=== PATIENT | male | born 1975 | race Caucasian/White ===

== ENCOUNTER 2017-03-06 20:44 | Emergency (ER) | payer OTHER ==
--- NOTE | 2017-03-07 00:02 | DIAGNOSTIC IMAGING REPORT ---
PROCEDURE: CT ABD/PELVIS WITH CONTRAST INDICATION: ABDOMINAL PAIN TECHNIQUE: 145 ml of Isovue 300 were injected intravenously and axial images were obtained of the entire abdomen and pelvis with sagittal and coronal reformations. COMPARISON: None. FINDINGS: ABDOMEN: Moderate splenomegaly with splenic and esophageal varices. Mildly heterogeneous appearance of the liver. Gallbladder, pancreas, kidneys, and aorta are normal. There is a 3.6 cm low density right adrenal nodule (25 HU) with lipomatous changes. Bowel pattern is normal. Appendix is not clearly identified, but no evidence of inflammatory process. PELVIS: Pelvic structures are normal. No evidence of free fluid. IMPRESSION: 1. Moderate splenomegaly with splenic and esophageal varices (portal hypertension). 2. Heterogeneous appearance of the liver high suggests intrinsic liver disease. 3. There is a 3.6 cm right adrenal nodule most compatible with a benign adenoma (functioning versus nonfunctioning). Follow-up CT in 6 months is recommended to confirm stability. 4. Otherwise negative CT abdomen and pelvis. 5. Findings discussed with Dr. Bud Torres. All CT scans at this facility use dose modulation, iterative reconstruction, and/or weight-based dosing when appropriate to reduce radiation dose to as low as reasonably achievable.
--- NOTE | 2017-03-07 00:10 | ED ORDER SUMMARY ---
..... Patient: JULIANNA HUFFMAN OrderSheet [facility] VisitID: [id number] [place] [address] 41y, M Registration Date/Time: 03/06/2017 ORDER SHEET Weight: 113.3 kg (stated) Allergies: Cephalexin, Toradol, Tylenol GENERAL ORDERS: CBC w Diff Urgent (21:03/06/2017 Bryson Smith) (Ack 21:19 CHagerty ER Hogshead Stripper) (21:38 DDean R.N.) CMP Urgent (21:03/06/2017 Bryson Smith) (Ack 21:19 CHagerty ER Hogshead Stripper) (21:38 DDean R.N.) UA-Culture if indicated Urgent (21:03/06/2017 Bryson Smith) (Ack 21:19 CHagerty ER Hogshead Stripper) (22:16 DDean R.N.) PT with INR Urgent (21:03/06/2017 Bryson Smith) (Ack 21:19 CHagerty ER Hogshead Stripper) (21:38 DDean R.N.) Lipase Urgent (21:03/06/2017 Bryson Smith) (Ack 21:19 CHagerty ER Hogshead Stripper) (21:38 DDean R.N.) Troponin-I Urgent (21:03/06/2017 Bryson Smith) (Ack 21:19 CHagerty ER Hogshead Stripper) (21:38 DDean R.N.) Urine Drug Screen Urgent (21:03/06/2017 Bryson Smith) (Ack 21:19 CHagerty ER Hogshead Stripper) (22:16 DDean R.N.) Pulse oximeter (21:03/06/2017 Bryson Smith) (21:17 DDean R.N.) D-Dimer Urgent (21:03/06/2017 Bryson Smith) (Ack 21:19 CHagerty ER Hogshead Stripper) (21:38 DDean R.N.) EKG - ER Stat (21:03/06/2017 Bryson Smith) (21:56 CHagerty ER Hogshead Stripper) Chief Engineer Waterworks (Continuous) (CP) (21:25 03/06/2017 Bryson Smith) (21:38 DDean R.N.) Chest 1V Urgent (22:44 03/06/2017 Bryson Smith) [facility] (22:54 RFay) Troponin-I (redraw now) Urgent (23:02 03/06/2017 Bryson Smith) (Ack 23:13 Miguelangel ER Hogshead Stripper) (23:26 CBradjannet R.N.) CT Abd/Pel w Cont (No) (gfr > 60) Urgent (23:02 03/06/2017 Bryson Smith) (Ack 23:13 Mangoerty ER Hogshead Stripper) (23:26 CBradburn R.N.) MEDICATION ORDERS: IV FLUIDS: IV NS : initial bolus 1000 mL (1000 mL/hr), then none - for X1 (NOW) (21:06 03/06/2017 Bryson Smith) (Ack 21:30 JQuivey R.N.) (21:39 JQuivey R.N.) Morphine IV 8 mg (HIGH ALERT MEDICATION, NOW) (21:07 03/06/2017 Bryson Smith) (Ack 21:30 JQuivey R.N.) (21:40 JQuivey R.N.) Zofran IV 4 mg (NOW) (21:07 03/06/2017 Bryson Smith) (Ack 21:30 JQuivey R.N.) (21:39 JQuivey R.N.) Dilaudid IV 1 mg (HIGH ALERT MEDICATION, NOW) (23:06 03/06/2017 Bryson Smith) (Ack 23:16 JSanders R.N.) (23:21 JSanders R.N.) ORDER SHEET NOTES: [Electronically signed by Lilly Cummins R.N. (00:26 03/07/2017)] [Electronically signed by Bud Torres Dr. (06:01 03/07/2017)] [Electronically locked/signed by Lilly Cummins R.N. (00:26 03/07/2017)]
--- NOTE | 2017-03-07 00:10 | ED NURSING NOTES ---
Clinical Report - Nurses Located Within [facility] [address] [place] [address] 03/06/2017 20:44 Patient: JULIANNA HUFFMAN TRIAGE Triage time 2044. Acuity: LEVEL 3. Chief Complaint: ABDOMINAL PAIN, NAUSEA, VOMITING and DIARRHEA. 20:45. --20:55 Sharmaine Rodriguez R.N. 20:48 03/06/17. BP: 173/100. HR: 79. RR: 19. O2 saturation: 100%. Temp: 98.8 F. Pain level now: 07/03. --20:55 Sharmaine Rodriguez R.N. Weight: 113.3 kg stated. Height/Length: 74 inches Per Patient. BMI: 32.1. --20:48 Sharmaine Rodriguez R.N. Medications ALPRAZolam Oral 1 mg, 2x a day as needed, anxity. Gabapentin Oral (Tablet 600 mg), 2x a day as needed. HCTZ 25 mg, daily. Lisinopril Oral 40 mg, daily. Propranolol (has been out for awhile ). PROzac Oral (Capsule 20 mg) 2 capsules, daily. --20:51 Sharmaine Rodriguez R.N. Allergies Cephalexin.(hives) Toradol.(hives, rash) Tylenol. (hep c) --20:51 Sharmaine Rodriguez R.N. History Arrived by EMS. Historian: police. Accompanied by police. No primary care physician. Onset. (1500). ( Pt also c/o mid-epigastric pain, and states he thinks he is going thru heroin withdrawl. last used , and uses daily). He has had nausea. He has had vomiting (x4). He has had diarrhea (x6). He has had abdominal pain (RUQ). SOCIAL HX: Former smoker (quit 6 months ago, was a 1ppd smoker for 5 years). Alcohol use. History of drug use: heroin, methamphetamines. (1/2 grams daily,). --20:55 Sharmaine Rodriguez R.N. PROBLEMS: Healing Abscess. Cellulitis. Hepatitis C. Abscess. Hypertension. --20:49 Sharmaine Rodriguez R.N. ADDITIONAL SURGERIES: Appendectomy. Left shoulder surgery. Shoulder Surgery. --20:49 Sharmaine Rodriguez R.N. Interventions ID band on patient. To treatment room. --20:55 Sharmaine Rodriguez R.N. PHYSICAL ASSESSMENT 20:45. To room via stretcher. Patient gowned. GENERAL / NEURO / PSYCH: Alert. Oriented X 4. Appears in pain. RESPIRATORY: Respirations not labored. CVS: Capillary refill less than 2 seconds. GI / : The patient has had nausea and diarrhea. Emesis noted. Abdominal tenderness. SKIN: Skin is warm and dry. --20:55 Sharmaine Rodriguez R.N. NURSING PROGRESS NOTES 20:45. Patient gowned. Head of bed elevated. Reassurance given. Patient identifiers checked. Call light placed in reach. Side rails up. Bed placed in lowest position. Patient ready for evaluation- chart flagged. --20:55 Sharmaine Rodriguez R.N. 20:58 03/06/17. BP: 159/92. HR: 76. RR: 20. O2 saturation: 100%. Temp: deferred. Pain level now: 07/03. --20:58 Sharmaine Rodriguez R.N. ( Unsuccessful IV start attempt in left AC and right AC). --21:20 Alfonso Pena R.N. 21:28 03/06/2017 Site #1 started via IV in the right wrist with an 20g angiocath, with aseptic technique and good blood return; one attempt. Blood drawn: rainbow set. Labeled in the presence of the patient and sent to the lab. Saline lock flushed with 10 mL saline. --21:39 Jerome Morgan R.N. 21:31 03/06/2017 Started bag #1 1000 mL IV Fluids IV NS (Saline); at 1000 mL/hr over 1 hour(s) via site #1 --21:39 Jerome Morgan R.N. 21:33 03/06/2017 Zofran (Ondansetron HCl) IVP 4 mg given over 2 minute(s) via site #1. Allergies verified and confirmed 5 rights. IV patency established. IV site checked: no pain, redness, or swelling. IV flushed thoroughly pre- and post-medication administration. --21:39 Jerome Morgan R.N. 21:35 03/06/2017 Morphine IVP 8 mg given over 2 minute(s) via site #1. Allergies verified, confirmed 5 rights and sedative warning given to the patient. IV patency established. IV site checked: no pain, redness, or swelling. IV flushed thoroughly pre- and post-medication administration. --21:40 Jerome Morgan R.N. EKG time: (2154). EKG was ordered, performed by a tech and shown to the ED physician. --21:58 Alberto Pisano, ER [employer] Truck Driver 22:00 03/06/17. BP: 161/86. HR: 66. RR: 24. O2 saturation: 100%. Temp: deferred. Pain level now: 05/02. --22:15 Sharmaine Rodriguez R.N. 22:10. Patient ID band checked for patient name and birthdate: patient confirmed. Clean catch urine collected with return of orange-colored clear urine; sample sent to lab for urinalysis, culture and drug screen. Specimen labeled in the presence of the patient. --22:16 Sharmaine Rodriguez R.N. 22:16 03/06/17. Care transferred and report given (Lilly Maharaj EDRN). --22:16 Sharmaine Rodriguez R.N. 23:17 03/06/17. BP: 143/64 (regular adult cuff) taken on the right arm. HR: 67 (regular). RR: 18. O2 saturation: 100% on room air. Pain level now: 06/02. --23:18 Donna Clifford R.N. 23:21 03/06/2017 Dilaudid (HYDROmorphone HCl PF) IVP 1 mg given over 1 minute(s) via site #1. Allergies verified, confirmed 5 rights and sedative warning given to the patient. IV patency established. IV site checked: no pain, redness, or swelling. IV flushed thoroughly pre- and post-medication administration. IVP given by RN. --23:21 Donna Clifford R.N. Patient transported to CT by stretcher with tech. (23:26). --23:26 Lilly Cummins R.N. Patient returned from CT by stretcher with tech. (23:41). --23:41 Lilly Cummins R.N. DISPOSITION / DISCHARGE 22:30 03/06/2017 IV Fluids IV NS Discontinued: bag #1 completed. Total amount infused: 1000 mL. IV patency established. IV site checked: no pain, redness, or swelling. IV flushed thoroughly. --00:22 Lilly Cummins R.N. 00:18 03/07/2017 Site #1 removed upon discharge. Catheter intact. Manual pressure and bandage applied. --00:23 Lilly Cummins R.N. Condition at departure: improved and stable. No learning barriers present. Discharge instructions provided and reviewed with the patient (law enforcement). Reviewed medication(s) side effects, precautions, dosing and course information (law enforcement). Patient verbalized understanding. Written instructions provided in Japanese. No activity restrictions or note given. The patient was discharged to police department facility and accompanied by a police escort. He left the Emergency Department ambulatory and via police department vehicle. Driving (police). --00:25 Lilly Cummins R.N. 00:18 03/07/17. BP: 151/63 taken on the left arm, while lying. HR: 65 (regular and normal rate). RR: 18 (regular and unlabored). O2 saturation: 100% on room air. Temp: deferred. Pain level now: 05/02. ED physician notified. Additional comments: no further pain medication ordered. --00:25 Lilly Cummins R.N. Departure time: 0018. --00:25 Lilly Cummins R.N. Locked/Released at 03/07/2017 0:26 by Lilly Cummins R.N.
--- NOTE | 2017-03-07 00:10 | ED ORDER SUMMARY ---
..... Patient: JULIANNA HUFFMAN OrderSheet [facility] VisitID: [id number] [place] [address] 41y, M Registration Date/Time: 03/06/2017 ORDER SHEET Weight: 113.3 kg (stated) Allergies: Cephalexin, Toradol, Tylenol GENERAL ORDERS: CBC w Diff Urgent (21:03/06/2017 Bryson Smith) (Ack 21:19 CHagerty ER Pediatric Medical Assistant) (21:38 DDean R.N.) CMP Urgent (21:03/06/2017 Bryson Smith) (Ack 21:19 CHagerty ER Pediatric Medical Assistant) (21:38 DDean R.N.) UA-Culture if indicated Urgent (21:03/06/2017 Bryson Smith) (Ack 21:19 CHagerty ER Pediatric Medical Assistant) (22:16 DDean R.N.) PT with INR Urgent (21:03/06/2017 Bryson Smith) (Ack 21:19 CHagerty ER Pediatric Medical Assistant) (21:38 DDean R.N.) Lipase Urgent (21:03/06/2017 Bryson Smith) (Ack 21:19 CHagerty ER Pediatric Medical Assistant) (21:38 DDean R.N.) Troponin-I Urgent (21:03/06/2017 Bryson Smith) (Ack 21:19 CHagerty ER Pediatric Medical Assistant) (21:38 DDean R.N.) Urine Drug Screen Urgent (21:03/06/2017 Bryson Smith) (Ack 21:19 CHagerty ER Pediatric Medical Assistant) (22:16 DDean R.N.) Pulse oximeter (21:03/06/2017 Bryson Smith) (21:17 DDean R.N.) D-Dimer Urgent (21:03/06/2017 Bryson Smith) (Ack 21:19 CHagerty ER Pediatric Medical Assistant) (21:38 DDean R.N.) EKG - ER Stat (21:03/06/2017 Bryson Smith) (21:56 CHagerty ER Pediatric Medical Assistant) Graduate Assistant (Continuous) (CP) (21:25 03/06/2017 Bryson Smith) (21:38 DDean R.N.) Chest 1V Urgent (22:44 03/06/2017 Bryson Smith) [facility] (22:54 RFay) Troponin-I (redraw now) Urgent (23:02 03/06/2017 Bryson Smith) (Ack 23:13 Miguelangel ER Pediatric Medical Assistant) (23:26 CBradjannet R.N.) CT Abd/Pel w Cont (No) (gfr > 60) Urgent (23:02 03/06/2017 Bryson Smith) (Ack 23:13 Mangoerty ER Pediatric Medical Assistant) (23:26 CBradburn R.N.) MEDICATION ORDERS: IV FLUIDS: IV NS : initial bolus 1000 mL (1000 mL/hr), then none - for X1 (NOW) (21:06 03/06/2017 Bryson Smith) (Ack 21:30 JQuivey R.N.) (21:39 JQuivey R.N.) Morphine IV 8 mg (HIGH ALERT MEDICATION, NOW) (21:07 03/06/2017 Bryson Smith) (Ack 21:30 JQuivey R.N.) (21:40 JQuivey R.N.) Zofran IV 4 mg (NOW) (21:07 03/06/2017 Bryson Smith) (Ack 21:30 JQuivey R.N.) (21:39 JQuivey R.N.) Dilaudid IV 1 mg (HIGH ALERT MEDICATION, NOW) (23:06 03/06/2017 Bryson Smith) (Ack 23:16 JSanders R.N.) (23:21 JSanders R.N.) ORDER SHEET NOTES: [Electronically signed by Lilly Cummins R.N. (00:26 03/07/2017)] [Electronically signed by Bud Torres Dr. (06:01 03/07/2017)] [Electronically locked/signed by Lilly Cummins R.N. (00:26 03/07/2017)]
--- NOTE | 2017-03-07 00:10 | ED CLINICAL REPORT ---
Clinical Report - Physicians/Mid Levels [facility] [address] [place] [address] 03/06/2017 20:44 Patient: JULIANNA HUFFMAN Time Seen: 2100. Arrived- By ambulance. Historian- patient. HISTORY OF PRESENT ILLNESS Chief Complaint: ABDOMINAL PAIN. At its maximum, severity described as severe. When seen in the E.D., severity described as severe. Modifying factors- worsened by movement. Not relieved by anything. This started today and is still present and worsening. It was abrupt in onset and has been constant but is not gone now. It is described as generalized in location and radiating to the chest. The patient has had nausea and diarrhea. No vomiting. No additional abdominal pain. (reports stopping heroin a few days ago.). Similar symptoms previously: None. Recent medical care: Not recently seen/assessed. REVIEW OF SYSTEMS No black stools, bloody stools, fever or difficulty breathing. All systems otherwise negative, except as recorded above. PAST HISTORY See nurses notes. Medications: ALPRAZolam Oral 1 mg, 2x a day as needed, anxity. Gabapentin Oral (Tablet 600 mg), 2x a day as needed. HCTZ 25 mg, daily. Lisinopril Oral 40 mg, daily. Propranolol (has been out for awhile ). PROzac Oral (Capsule 20 mg) 2 capsules, daily. Allergies: Cephalexin.(hives) Toradol.(hives, rash) Tylenol. (hep c). SOCIAL HISTORY Smoker- current status unknown. Alcohol use. History of drug use: heroin. No recent travel. Is a local resident. ADDITIONAL NOTES The nursing notes have been reviewed. PHYSICAL EXAM Vital Signs: 03/06/2017 20:48 BP: 173/100. HR: 79. RR: 19. O2 saturation: 100%. Temp: 98.8 F. Pain level now: 9/10. Oxygen saturation normal. Appearance: Alert. Oriented X3. No acute distress. (non-toxic appearance). Eyes: Pupils equal, round and reactive to light. Eyes normal inspection. ENT: Ears normal. Nose normal. Pharynx normal. Neck: Normal inspection. Neck supple. CVS: Normal heart rate and rhythm. Heart sounds normal. Pulses normal. Respiratory: No respiratory distress. Breath sounds normal. Chest nontender. Abdomen: Soft and nontender. No organomegaly. No mass. Femoral pulses equal. (hyperactive bowel sounds). Skin: Skin warm and dry. Normal skin color. No rash. Normal skin turgor. (+pyeloeretion). Extremities: Extremities exhibit normal ROM. No lower extremity edema. Neuro: Oriented X 3. No motor deficit. No sensory deficit. LABS, X-RAYS, AND EKG EKG: No acute ischemia. Normal sinus rhythm. Rate: 65. Normal P waves. Normal KAREN. Normal QRS complex. Normal axis. Normal ST and T waves. Prolonged QT (464). Prolonged QTc (482). The study has been interpreted contemporaneously. The study has been independently viewed by me. The EKG appears to be a good tracing. Chest X-ray: (PROCEDURE: XR CHEST 1 VIEW INDICATION: CHEST PAIN TECHNIQUE: Portable AP view (2255 hours).). COMPARISON: None. FINDINGS: Lungs are clear. Heart and mediastinum are normal. There is an old fracture of the left clavicle transfixed with a side plate and multiple screws. IMPRESSION: 1. Negative chest.). Views: AP (portable). The X-rays were independently viewed by me and interpreted by the radiologist. The X-rays were discussed with the radiologist (via pacs and phone). Abdominal CT: PROCEDURE: CT ABD/PELVIS WITH CONTRAST INDICATION: ABDOMINAL PAIN TECHNIQUE: 145 ml of Isovue 300 were injected intravenously and axial images were obtained of the entire abdomen and pelvis with sagittal and coronal reformations. COMPARISON: None. FINDINGS: ABDOMEN: Moderate splenomegaly with splenic and esophageal varices. Mildly heterogeneous appearance of the liver. Gallbladder, pancreas, kidneys, and aorta are normal. There is a 3.6 cm low density right adrenal nodule (25 HU) with lipomatous changes. Bowel pattern is normal. Appendix is not clearly identified, but no evidence of inflammatory process. PELVIS: Pelvic structures are normal. No evidence of free fluid. IMPRESSION: 1. Moderate splenomegaly with splenic and esophageal varices (portal hypertension). 2. Heterogeneous appearance of the liver high suggests intrinsic liver disease. 3. There is a 3.6 cm right adrenal nodule most compatible with a benign adenoma (functioning versus nonfunctioning). Follow-up CT in 6 months is recommended to confirm stability. 4. Otherwise negative CT abdomen and pelvis. Study type: abdomen and pelvis. Abdominal CT performed with IV contrast. The study was independently viewed by me and interpreted by the radiologist. The study was discussed with the radiologist (via phone and pacs). Laboratory Tests: UA-Culture if indicated: (EMMANUEL: 03/06/2017 22:05) ( [facility] 03/06/[place] 22:33) Final results Test Result Flag Units (Reference) URINE COLOR YELLOW URINE APPEARANCE CLEAR URINE GLUCOSE NEGATIVE (NEGATIVE) URINE BILIRUBIN 1+ (NEGATIVE) URINE KETONE NEGATIVE (NEGATIVE) URINE SPECIFIC GRAVITY 1.015 (1.010-1.030) URINE PH 6.5 (5.0-8.0) URINE PROTEIN TRACE (NEGATIVE) URINE UROBILINOGEN 1.0 EU/dL (0.2-1.0) URINE NITRITE NEGATIVE (NEGATIVE) URINE BLOOD NEGATIVE (NEGATIVE) URINE LEUK ESTERASE NEGATIVE (NEGATIVE) URINE RBC 0-1 rbc/hpf (0-1) URINE WBC 0-1 wbc/hpf (0-1) URINE EPITHELIAL CELLS 0-1 EPI/hpf (0-5) URINE BACTERIA NONE SEEN (NONE SEEN) URINE COMMENT CULT NOT INDICATED URINE CULTURES ARE SET-UP BASED ON THE FOLLOWING CRITERIA:POSITIVE NITRITEPOSITIVE LEUKOCYTE ESTERASEGREATER THAN 10 WHITE BLOOD CELLSMODERATE (2+) OR GREATER BACTERIA CBC w Diff: (EMMANUEL: 03/06/2017 21:25) ( [facility] 03/06/2017 21:48) Final results Test Result Flag Units (Reference) WHITE BLOOD COUNT 9.6 K/uL (4.5-11.5) RED BLOOD COUNT 5.60 M/uL (4.50-5.90) HEMOGLOBIN 16.6 gm/dL (13.5-17.5) HEMATOCRIT 49.2 % (41.0-53.0) MEAN CELL VOLUME 88 fL (80-100) MEAN CORPUSCULAR HGB 30 pg (26-34) MEAN CORPUSCULAR HGB CONC 34 g/dL (31-37) RED CELL DISTRIBUTION WIDTH 14.1 % (11.6-14.8) PLATELET COUNT 170 K/uL (150-400) NEUTROPHIL % 71.2 % (50-75) LYMPH % 21.4 L % (25-40) MONO % 6.8 % (3-14) EOSINOPHIL % 0.2 % (0-4) BASOPHIL % 0.4 % (0-2) [id number]: (EMMANUEL: 03/06/2017 21:25) ( [facility] 03/06/2017 22:11) Final results Test Result Flag Units (Reference) D-DIMER QUANTITATIVE 0.43 ug/mLFEU (0.27-0.52) The primary value of this quantitative assay relates toits negative predictive value (i.e. exclusion) of pulmonaryembolism/deep vein thrombosis/DIC.Elevated levels of d-dimer may also occur with:, age, cancer, inflammation, liver disease,post-op, infection, hematoma, coronary disease, peripheralarteriopathy, bleeding disorders and thrombolytic treatment.Results should be correlated with other clinical andradiological data.Testing Methodology: Latex Immunoassay PT with INR: (EMMANUEL: 03/06/2017 21:25) ( [facility] 03/06/2017 22:02) Final results Test Result Flag Units (Reference) INR 1.1 (0.8-1.2) Low Intensity Therapy: INR 1.5-2.0 PT range 18.5-23.1Mod.Intensity Therapy: INR 2.0-3.0 PT range 23.1-31.5High Intensity Therapy: INR 2.5-3.5 PT range 27.4-35.5High Intensity Therapy 2: INR 3.0-4.0 PT range 31.5-39.3 Urine Drug Screen: (EMMANULE: 03/06/2017 22:05) ( [facility] 03/06/2017 22:38) Final results Test Result Flag Units (Reference) AMPHETAMINE/METHAMPHETAMINE POSITIVE H (NEGATIVE) BARBITURATE NEGATIVE (NEGATIVE) BENZODIAZEPINE NEGATIVE (NEGATIVE) CANNABINOID NEGATIVE (NEGATIVE) COCAINE NEGATIVE (NEGATIVE) ECSTASY NEGATIVE (NEGATIVE) METHADONE NEGATIVE (NEGATIVE) OPIATE POSITIVE H (NEGATIVE) The urine drug screen is a qualitative screening test fordrug overdose and abuse. All screen results should beconsidered as presumptive.Drugs screened for are as follows:BenzodiazepinesCocaineAmphetamines/MetamphetaminesTHC (Tetrahydrocannabinol)OpiatesBarbituratesEcstasyMethadonePositive results are unconfirmed. For confirmation, notifythe lab for the specimen to be sent to the reference lab.All confirmations must be performed by a differentmethodology.The ingestion of natural herbal and plant productscontaining Ephedra/Ephedra metabolites can produce in urineone or more substances capable of cross reacting withamphetamine/methamphetamine immunoassays. These testsprovide a preliminary result only. A more specificalternative chemical method must be used to obtain aconfirmed analytical result. CMP: (EMMANUEL: 03/06/2017 21:25) ( MsgRcvd 03/06/2017 22:10) Final results Test Result Flag Units (Reference) GLUCOSE 109 mg/dL (70-110) BUN 13 mg/dL (7-18) CREATININE 0.8 mg/dL (0.6-1.3) Estimated GFR >60 mL/min Estimated GFR- >60 mL/min Note: Persistent reduction over 3 months in eGFR<60 mL/min/1.73 m2 defines CKD. Patients with eGFR values>=60 mL/min/1.73 m2 may also have CKD if evidence ofpersistent proteinuria. Additional information may be foundat [email or web address].org. SODIUM 142 mmol/L (136-145) POTASSIUM 3.5 mmol/L (3.5-5.1) CHLORIDE 105 mmol/L (98-107) CARBON DIOXIDE 24 mmol/L (21-32) CALCIUM 10.3 H mg/dL (8.5-10.1) TOTAL PROTEIN 9.5 H g/dL (6.4-8.2) ALBUMIN 4.1 g/dL (3.3-5.0) BILIRUBIN, TOTAL 1.7 H mg/dL (0.0-1.0) ALKALINE PHOSPHATASE 145 H U/L (46-116) AST (SGOT) 36 U/L (15-37) ALT (SGPT) 38 U/L (12-78) LIPASE 262 U/L (73-393) TROPONIN I <0.05 ng/mL (0.00-1.5) TROPONIN REFERENCE RANGE:<0.1 NEGATIVE0.1-1.5 INDETERMINANT>1.5 POSITIVE . PROGRESS AND PROCEDURES Course of Care: The patient is a pleasant 41-year-old male presenting for eval of abdominal pain. Appears to be opioid withdrawal on examination and history however patient is reporting abdominal pain and chest pain. Patient will be evaluated with a d-dimer for regression of potential abdominal aortic aneurysm/dissection. Patient is also reporting chest pain. Concern for pulmonary embolism also on the differential diagnosis. Because of the patient's symptoms, would be concern for also intra-abdominal pathology. Because of this, we will await for the patient's d-dimer to return in ordered to evaluate for some these entities. If the patient's d-dimer is noted to be normal, would be less concern for pulmonary embolism and dissecting thoracic aortic aneurysm. And if the d-dimer is normal, would order a CT scan of the abdomen and pelvis With contrast for a vaginal of intra-abdominal pathology. Patient's workup is noted to be negative. The d-dimer is noted to be negative. Patient was reevaluated and found to have a generally tender abdominal examination. Appears to be nonfocal. Because of the patient's persistent abdominal pain, we'll evaluate with a CT scan of the abdomen and pelvis with contrast. Patient is agreeable to the treatment plan. Patient is requesting further pain medication however because of the patient's heroin aabuse, discussed with him the significant difficulty with pain control in the emergency department with available medications. Expressed by deep concern for the heroin abuse and the futility of opioid treatments while here in the emergency department. Offered patient a total of 2 doses of opioid pain medication. Patient's CT scan is negative for the findings above. Discussed with patient his workup here in emergency department including diagnosis, home care, follow-up, return precautions, and need for further evaluation. All questions have been answered. The patient expressed understanding of these instructions and was agreeable to them. Do not fill patient has a having an acute myocardial infarction, pulmonary embolism, thoracic aortic dissection, abdominal aortic aneurysm, or other more sinister etiologies of his pain. Patient's symptoms likely due to opioid withdrawal. Disposition: Discharged. Condition: good. CLINICAL IMPRESSION Acute generalized abdominal pain. 03/06/2017 22:00 BP: 161/86. HR: 66. RR: 24. O2 saturation: 100%. Pain level now: 05/02. Chest pain characterized as "tightness" .12 lead EKG performed. (acute substernal). Blood pressure normal. Oxygen saturation normal. Essential hypertension. Substance abuse- narcotics, stimulants. incidental adrenal mass. INSTRUCTIONS Warnings: Further evaluation is necessary (recheck adrenal mass in about 6 months). It is very important to follow up with a physician. Your Current Medications: CONTINUE TAKING THE FOLLOWING MEDICATIONS: ALPRAZolam Oral : 1 mg 2x a day, prn, anxity. Gabapentin Oral : Tablet 600 mg, 2x a day, prn. HCTZ* : 25 mg daily. Lisinopril Oral : 40 mg daily. Propranolol* : has been out for awhile. PROzac Oral : Capsule 20 mg, 2 capsules daily. Prescription Medications: Zofran (orally disintegrating tablets) 4 mg: take 1 orally every 8 hours as needed for nausea and vomiting. Dispense ten (10). No refill. Substitution is permissible. Follow-up: Return to the emergency department as needed. Follow up with your doctor in three days. Reason for referral: recheck today's concerns. Summary of care provided to patient via paper. Screening today revealed the patient's blood pressure to be in the hypertensive range. The patient should follow up with a primary care provider for blood pressure management. Understanding of the discharge instructions verbalized by patient. (Electronically signed by Bud Torres Dr. 03/07/2017 6:01)
--- NOTE | 2017-03-07 00:25 | DIAGNOSTIC IMAGING REPORT ---
PROCEDURE: XR CHEST 1 VIEW INDICATION: CHEST PAIN TECHNIQUE: Portable AP view (2255 hours).). COMPARISON: None. FINDINGS: Lungs are clear. Heart and mediastinum are normal. There is an old fracture of the left clavicle transfixed with a side plate and multiple screws. IMPRESSION: 1. Negative chest.
--- NOTE | 2017-03-07 06:01 | ED MAR SUMMARY ---
..... Medication Administration Record [facility] [address] [place] [address] Patient: JULIANNA HUFFMAN Visit ID: [id number] 41y, M Weight: 113.3 kg Height/Length: 74 in BMI: 32.1 ALLERGIES: Cephalexin, Toradol, Tylenol Start 21:31 03/06/2017 Jerome Morgan RArnaldo, Stop 22:30 03/06/2017 Lilly Cummins R.N. Medication Administered: IV NS (SALINE), Dose: IV Fluids over 1 hour(s), Rate: 1000 mL/hr, Dispensed: 1000 mL bag, Site: #1 right wrist. Medication Ordered: IV NS : initial bolus 1000 mL (1000 mL/hr), then none - for X1 (NOW). Given 21:33 03/06/2017 Jerome Morgan R.N. Medication Administered: ZOFRAN [IVP] (ONDANSETRON HCL), Dose: 4 mg IVP over 2 minute(s), Site: #1 right wrist. Medication Ordered: Zofran IV 4 mg (NOW). Given 21:35 03/06/2017 Jerome Morgan R.N. Medication Administered: MORPHINE [IVP], Dose: 8 mg IVP over 2 minute(s), Site: #1 right wrist. Medication Ordered: Morphine IV 8 mg (HIGH ALERT MEDICATION, NOW). Given 23:21 03/06/2017 Donna Clifford R.N. Medication Administered: DILAUDID [IVP] (HYDROMORPHONE HCL PF), Dose: 1 mg IVP over 1 minute(s), Site: #1 right wrist. Medication Ordered: Dilaudid IV 1 mg (HIGH ALERT MEDICATION, NOW).
--- NOTE | 2017-03-07 06:01 | ED DISCHARGE INSTRUCTIONS ---
Patient: JULIANNA HUFFMAN General Instructions [facility] VisitID: [id number] [place] [address] 41y, M Registration Date/Time: 03/06/2017 Acute generalized abdominal pain. 03/06/2017 22:00 BP: 161/86. HR: 66. RR: 24. O2 saturation: 100%. Pain level now: 7/10. Chest pain characterized as "tightness" .12 lead EKG performed. (acute substernal). Blood pressure normal. Oxygen saturation normal. Essential hypertension. Substance abuse- narcotics, stimulants. incidental adrenal mass. INSTRUCTIONS Warnings: Further evaluation is necessary (recheck adrenal mass in about 6 months). It is very important to follow up with a physician. Your Current Medications: CONTINUE TAKING THE FOLLOWING MEDICATIONS: ALPRAZolam Oral : 1 mg 2x a day, prn, anxity. Gabapentin Oral : Tablet 600 mg, 2x a day, prn. HCTZ* : 25 mg daily. Lisinopril Oral : 40 mg daily. Propranolol* : has been out for awhile. PROzac Oral : Capsule 20 mg, 2 capsules daily. Prescription Medications: Zofran (orally disintegrating tablets) 4 mg: take 1 orally every 8 hours as needed for nausea and vomiting. Dispense ten (10). No refill. Substitution is permissible. Follow-up: Return to the emergency department as needed. Follow up with your doctor in three days. Reason for referral: recheck today's concerns. Summary of care provided to patient via paper. Screening today revealed the patient's blood pressure to be in the hypertensive range. The patient should follow up with a primary care provider for blood pressure management. Understanding of the discharge instructions verbalized by patient. ADDITIONAL INFORMATION Abdominal Pain,Uncertain Cause [Male] Based on your visit today, the exact cause of your abdominalpain is not clear. Your exam and tests do not indicate a dangerous cause at this time. However, the signs of a serious problem may take more time to appear. Although your evaluation was reassuring today, sometimes early in the course of many conditions, exam and lab tests can appear normal. Therefore, it is important for you to watch for any new symptoms or worsening of your condition. Causes It may not be obvious what caused your symptoms. Pay attention to things that do seem to make your symptoms worse or better and discuss this with your doctor when you follow up. Diagnosis The evaluation of abdominal pain in the emergency department may onlyrequire an exam by the doctor or it may include blood, urine or imaging studies, depending on many factors. Sometimes exams and tests can identify a cause but in many cases, a clear cause is not found. Further testing at follow up visits may help to suggest a clear diagnosis. Home Care Rest as much as possible until your next exam. Try to avoid any medications (unless otherwise directed by your doctor), foods, activities, or other factors that you may have contributed to your symptoms. Try to eat foods that you know that you have tolerated well in the past. Certain diets may be recommended for some conditions that cause abdominal pain. However, since the cause of your symptoms may not be clear, discuss your diet more with your primary care provider or specialist for further recommendations. Eating several small meals per day as opposed to 2 or 3 larger meals may help. Monitor closely for anything that may make your symptoms worse or better. Pay close attention to symptoms below that may indicate worsening of your condition. Follow Up and Precautions See your doctoras instructed or sooneror if your symptoms are not improving.In some cases, you may need more testing. When to Seek Medical Attention Contact your doctor or see medical attention ifany of the following occur: Pain is becoming worse You are unable to take your medications due to excessive vomiting Swelling of the abdomen Fever of 100.4F (38C) or higher, or as directed by your health care provider Blood in vomit or bowel movements (dark red or black color) Jaundice (yellow color of eyes and skin) New onset of weakness, dizziness or fainting New onset of chest, arm, back, neck or jaw pain Abdominal Pain, Possible Appendicitis, Repeat Exam, Male Based on your visit today, the exact cause of your abdominal (stomach) pain is not certain. However, you do have some of the early signs of appendicitis. Early in an appendix infection the symptoms can be similar to a simple "stomach ache" or "stomach flu". Therefore, the diagnosis can be hard to make.Since an appendix infection is a serious condition, it is important to know if this is the cause of your symptoms. WAITING for more time to pass and repeating the exam is the best way to find out whether you have appendicitis. Within the next 12-24 hours the cause of your stomach pain should become clear. It is important for you to watch for any new symptoms or worsening of your condition.(See below). Home Care: Rest until your next exam. No strenuous activities. Eat a diet low in fiber (called a low-residue diet). Foods allowed include refined breads, white rice, fruit and vegetable juices without pulp, tender meats. These foods will pass more easily through the intestine. Avoid whole-grain foods, whole fruits and vegetables, meats, seeds and nuts, fried or fatty foods, dairy, alcohol and spicy foods until your symptoms go away. In some cases, you may be asked not to eat or drink anything until you are re-examined. Return for another exam exactly as directed. Follow Up with your doctor or this facility as directed. [NOTE: If you had an X-ray, CT scan, ultrasound, or EKG (cardiogram), it will be reviewed by a specialist. You will be notified of any new findings that may affect your care.] Return Promptly before your next appointment or contact your doctor if any of the following occur: Pain gets worse or moves to the right lower abdomen New or worsening vomiting or diarrhea Swelling of the abdomen Unable to pass stool for more than three days New fever over 100.4 F (38.0 C), or rising fever Blood in vomit or bowel movements (dark red or black color) Weakness, dizziness or fainting High Blood Pressure -- To Be Confirmed [No Tx] Your blood pressure was higher today than normal. Sometimes anxiety or pain can cause a temporary rise in blood pressure that later returns to normal. If your blood pressure is high on one measurement, this does not mean that you have hypertension (a chronic illness). However, you must have your blood pressure measured again within the next few days to find out if its still high. A normal blood pressure is 120/80 or less. The first (top) number is the "systolic" pressure. The second (bottom) number is the "diastolic" pressure. Hypertension exists when either the top number is 140 or higher, OR the bottom number is 90 or higher on repeated measurements. Blood pressure in the range of 120-140 (systolic) or 80-89 (diastolic) is considered "pre-hypertension". This means your are at risk for getting hypertension. You should have regular blood pressure checks to be sure your blood pressure is not rising. Home Care: Measure your blood pressure on 3 different days and write down the results. This can be done at your doctor's office or this facility. Some pharmacies and grocery stores offer automated blood pressure machines for your use. Follow Up: If your blood pressure is "high" (over 120/80) on 2 out of 3 days, you will need to follow up with your doctor for further evaluation and treatment. DO NOT PUT THIS OFF! Untreated high blood pressure increases the risk for heart attack, also known as acute myocardial infarction, or AMI, and stroke. It is a treatable condition. Get Prompt Medical Attention if any of the following occur: Chest pain or shortness of breath Severe headache Throbbing or rushing sound in the ears Nosebleed Sudden severe abdominal pain Extreme drowsiness, confusion or fainting Dizziness or vertigo (dizziness with spinning sensation) Weakness of an arm or leg or one side of the face Difficulty with speech or vision Chest Pain, Uncertain Cause Chest pain can happen for a number of reasons. Sometimes the cause can not be determined. If yourcondition does not seem serious, and your pain does not appear to be coming from your heart, your doctor may recommend watching it closely. Sometimes the signs of a serious problem take more time to appear. Therefore, watch for the warning signs listed below. Home care After your visit, follow these recommendations: Rest today and avoid strenuous activity. Take any prescribed medicine as directed. Follow-up care Follow up with your doctor or this facility as instructed or if you do not start to feel better within 24 hours. Call 911 Get immediate medical attention if any of the following occur: A change in the type of pain: if it feels different, becomes more severe, lasts longer, or begins to spread into your shoulder, arm, neck, jaw or back Shortness of breath or increased pain with breathing Weakness, dizziness, or fainting Rapid heart beat Get prompt medical attention Call your doctor right away if any of the following occur: Cough with dark colored sputum (phlegm) or blood Fever of 100.4F(38C) or higher, or as directed by your health care provider Swelling, pain or redness in one leg Ondansetron Oral disintegrating tablet What is this medicine? ONDANSETRON (on FRANK se diana) is used to treat nausea and vomiting caused by chemotherapy. It is also used to prevent or treat nausea and vomiting after surgery. How should I use this medicine? These tablets are made to dissolve in the mouth. Do not try to push the tablet through the foil backing. With dry hands, peel away the foil backing and gently remove the tablet. Place the tablet in the mouth and allow it to dissolve, then swallow. While you may take these tablets with water, it is not necessary to do so. Talk to your medicare nurse regarding the use of this medicine in children. Special care may be needed. What side effects may I notice from receiving this medicine? Side effects that you should report to your doctor or health post acute care registered nurse as soon as possible: allergic reactions like skin rash, itching or hives, swelling of the face, lips, or tongue breathing problems dizziness fast or irregular heartbeat feeling faint or lightheaded, falls fever and chills swelling of the hands and feet tightness in the chest Side effects that usually do not require medical attention (report to your doctor or health post acute care registered nurse if they continue or are bothersome): constipation or diarrhea headache What may interact with this medicine? Do not take this medicine with any of the following medications: -apomorphine -cisapride -dofetilide -dronedarone -pimozide -thioridazine -ziprasidone This medicine may also interact with the following medications: -carbamazepine -phenytoin -rifampicin -tramadol -other medicines that prolong the QT interval (cause an abnormal heart rhythm) What if I miss a dose? If you miss a dose, take it as soon as you can. If it is almost time for your next dose, take only that dose. Do not take double or extra doses. Where should I keep my medicine? Keep out of the reach of children. Store between 2 and 30 degrees C (36 and 86 degrees F). Throw away any unused medicine after the expiration date. What should I tell my health care provider before I take this medicine? They need to know if you have any of these conditions: heart disease history of irregular heartbeat liver disease low levels of magnesium or potassium in the blood an unusual or allergic reaction to ondansetron, granisetron, other medicines, foods, dyes, or preservatives or trying to get breast-feeding What should I watch for while using this medicine? Check with your doctor or health post acute care registered nurse as soon as you can if you have any sign of an allergic reaction. You have been given the following additional information: Abdominal Pain, Unknown Cause, (Male) Abdominal Pain, Possible Appendicitis [Male] Hypertension, To Be Confirmed Chest Pain, Uncertain Cause Ondansetron Oral disintegrating tablet (Electronically signed by Bud Torres Dr. 03/07/2017 6:01)
--- NOTE | 2017-03-07 06:01 | ED MED RECONCILIATION SUMMARY ---
Patient: JULIANNA HUFFMAN Medication Reconciliation Report [facility] VisitID: [id number] [address] [place] [address] 41y, M Registration Date/Time: 03/06/2017 Weight: 113.3 kg Height/Length: 74 in. BMI: 32.1 ALLERGIES: Cephalexin, Toradol, Tylenol The patient's Home Medications are listed below: CONTINUE TAKING THE FOLLOWING MEDICATIONS: ALPRAZolam Oral 1 mg, 2x a day, anxity Gabapentin Oral (600 mg), 2x a day HCTZ 25 mg, daily Lisinopril Oral 40 mg, daily Propranolol, has been out for awhile PROzac Oral (20 mg) 2 capsules, daily The source(s) of the original Home Medication information: Not obtained. The following Medications were given to the patient in the Emergency Department: IV NS IV Fluids bolus 0, then 1000 mL/hr, administered: 03/06/2017 9:31:00 PM Zofran [IVP] IVP 4 mg, administered: 03/06/2017 9:33:00 PM Morphine [IVP] IVP 8 mg, administered: 03/06/2017 9:35:00 PM Dilaudid [IVP] IVP 1 mg, administered: 03/06/2017 11:21:00 PM The following Medications were prescribed to the patient: Zofran (orally disintegrating tablets) 4 mg: take 1 orally every 8 hours as needed for nausea and vomiting. Dispense ten (10). No refill. Substitution is permissible. -- Bud Torres Dr.
--- NOTE | 2017-03-07 06:01 | ED MAR SUMMARY ---
..... Medication Administration Record [facility] [address] [place] [place] [address] Patient: JULIANNA HUFFMAN Visit ID: [id number] 41y, M Weight: 113.3 kg Height/Length: 74 in BMI: 32.1 ALLERGIES: Cephalexin, Toradol, Tylenol Start 21:31 03/06/2017 Jerome Morgan RArnaldo, Stop 22:30 03/06/2017 Lilly Cummins R.N. Medication Administered: IV NS (SALINE), Dose: IV Fluids over 1 hour(s), Rate: 1000 mL/hr, Dispensed: 1000 mL bag, Site: #1 right wrist. Medication Ordered: IV NS : initial bolus 1000 mL (1000 mL/hr), then none - for X1 (NOW). Given 21:33 03/06/2017 Jerome Morgan R.N. Medication Administered: ZOFRAN [IVP] (ONDANSETRON HCL), Dose: 4 mg IVP over 2 minute(s), Site: #1 right wrist. Medication Ordered: Zofran IV 4 mg (NOW). Given 21:35 03/06/2017 Jerome Morgan R.N. Medication Administered: MORPHINE [IVP], Dose: 8 mg IVP over 2 minute(s), Site: #1 right wrist. Medication Ordered: Morphine IV 8 mg (HIGH ALERT MEDICATION, NOW). Given 23:21 03/06/2017 Donna Clifford R.N. Medication Administered: DILAUDID [IVP] (HYDROMORPHONE HCL PF), Dose: 1 mg IVP over 1 minute(s), Site: #1 right wrist. Medication Ordered: Dilaudid IV 1 mg (HIGH ALERT MEDICATION, NOW).
--- NOTE | 2017-03-07 06:01 | ED MED RECONCILIATION SUMMARY ---
Patient: JULIANNA HUFFMAN Medication Reconciliation Report [facility] VisitID: [id number] [address] [place] [address] 41y, M Registration Date/Time: 03/06/2017 Weight: 113.3 kg Height/Length: 74 in. BMI: 32.1 ALLERGIES: Cephalexin, Toradol, Tylenol The patient's Home Medications are listed below: CONTINUE TAKING THE FOLLOWING MEDICATIONS: ALPRAZolam Oral 1 mg, 2x a day, anxity Gabapentin Oral (600 mg), 2x a day HCTZ 25 mg, daily Lisinopril Oral 40 mg, daily Propranolol, has been out for awhile PROzac Oral (20 mg) 2 capsules, daily The source(s) of the original Home Medication information: Not obtained. The following Medications were given to the patient in the Emergency Department: IV NS IV Fluids bolus 0, then 1000 mL/hr, administered: 03/06/2017 9:31:00 PM Zofran [IVP] IVP 4 mg, administered: 03/06/2017 9:33:00 PM Morphine [IVP] IVP 8 mg, administered: 03/06/2017 9:35:00 PM Dilaudid [IVP] IVP 1 mg, administered: 03/06/2017 11:21:00 PM The following Medications were prescribed to the patient: Zofran (orally disintegrating tablets) 4 mg: take 1 orally every 8 hours as needed for nausea and vomiting. Dispense ten (10). No refill. Substitution is permissible. -- Bud Torres Dr.
== END 2017-03-07 00:18 ==
LOC: ED SRH 20:44
DX: R07.89 Other chest pain (principal); R10.84 Generalized abdominal pain; F11.10 Opioid abuse, uncomplicated; F15.10 Other stimulant abuse, uncomplicated; I10 Essential (primary) hypertension; E27.8 Other specified disorders of adrenal gland; Z79.899 Other long term (current) drug therapy; Z87.891 Personal history of nicotine dependence; Z88.1 Allergy status to other antibiotic agents; Z88.6 Allergy status to analgesic agent
CPT/HCPCS: 90004; 90100; 90616; 91556; 92235; 92760; 92761; 92762; 92763; 92764; 92765; 92766; 92767; 94060; 95059

== ENCOUNTER 2017-03-19 20:34 | Emergency (ER) | payer OTHER ==
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
--- NOTE | 2017-03-19 22:24 | ED ORDER SUMMARY ---
..... Patient: JULIANNA HUFFMAN OrderSheet [facility] VisitID: [id number] [place] [address] 41y, M Registration Date/Time: 03/19/2017 ORDER SHEET Weight: 113.3 kg (stated) Allergies: Cephalexin, Toradol, Tylenol GENERAL ORDERS: Hand 3 or 4V Right Urgent (21:54 03/19/2017 Marilee FariaNRick verbal order read back to Estrella YODER) ([facility] 21:59 RKaruga) (22:08 Marilee R.N.) Splint (UE) (Right) (Thumb Spica) (Short Arm) (22:21 03/19/2017 Estrella YODER) (22:46 Miguelangel ER Tub Washer) MEDICATION ORDERS: Percocet PO 5/325 mg (HIGH ALERT MEDICATION, NOW) (21:55 03/19/2017 Marilee Eid verbal order read back to Estrella YODER) (Cancelled: Other22:08 Marilee R.N.) Oxycodone-APAP PO 10/650 mg (HIGH ALERT MEDICATION, NOW) (21:58 03/19/2017 Estrella YODER) (22:08 Marilee R.N.) IV FLUIDS: ORDER SHEET NOTES: [Electronically signed by Jerome Gordon R.N. (22:55 03/19/2017)] [Electronically signed by Paty Michel PA-C (00:06 03/20/2017)] [Electronically locked/signed by Jerome Gordon R.N. (22:55 03/19/2017)]
--- NOTE | 2017-03-19 22:24 | ED ORDER SUMMARY ---
..... Patient: JULIANNA HUFFMAN OrderSheet [facility] VisitID: [id number] [place] [address] 41y, M Registration Date/Time: 03/19/2017 ORDER SHEET Weight: 113.3 kg (stated) Allergies: Cephalexin, Toradol, Tylenol GENERAL ORDERS: Hand 3 or 4V Right Urgent (21:54 03/19/2017 Marilee FariaNRick verbal order read back to Estrella YODER) ([facility] 21:59 RKaruga) (22:08 Marilee R.N.) Splint (UE) (Right) (Thumb Spica) (Short Arm) (22:21 03/19/2017 Estrella YODER) (22:46 Miguelangel ER Route Sales Driver) MEDICATION ORDERS: Percocet PO 5/325 mg (HIGH ALERT MEDICATION, NOW) (21:55 03/19/2017 Marilee Eid verbal order read back to Estrella YODER) (Cancelled: Other22:08 Marilee R.N.) Oxycodone-APAP PO 10/650 mg (HIGH ALERT MEDICATION, NOW) (21:58 03/19/2017 Estrella YODER) (22:08 Marilee R.N.) IV FLUIDS: ORDER SHEET NOTES: [Electronically signed by Jerome Gordon R.N. (22:55 03/19/2017)] [Electronically signed by Paty Michel PA-C (00:06 03/20/2017)] [Electronically locked/signed by Jerome Gordon R.N. (22:55 03/19/2017)]
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
--- NOTE | 2017-03-20 00:06 | ED MAR SUMMARY ---
..... Medication Administration Record [facility] [address] [place] [address] Patient: JULIANNA HUFFMAN Visit ID: [id number] 41y, M Weight: 113.3 kg Height/Length: 74 in BMI: 32.1 ALLERGIES: Cephalexin, Toradol, Tylenol Given 22:03 03/19/2017 Jerome Gordon R.N. Medication Administered: OXYCODONE-APAP [PO] (OXYCODONE-ACETAMINOPHEN), Dose: 2 tab 10/650 mg Tablets PO. Medication Ordered: Oxycodone-APAP PO 10/650 mg (HIGH ALERT MEDICATION, NOW).
--- NOTE | 2017-03-20 00:06 | ED DISCHARGE INSTRUCTIONS ---
Patient: JULIANNA HUFFMAN General Instructions [facility] VisitID: [id number] [address] [place] [address] 41y, M Registration Date/Time: 03/19/2017 Closed displaced proximal phalanx fracture of the right thumb. we re-splinted with thumb spica. he needs to see ortho for follow up Tuesday at [facility]. INSTRUCTIONS Elevate affected areas above chest level. Wear fiberglass splint (until you see ortho for follow up). Limit use of your right hand for four weeks as needed and until released. No dietary restrictions. Warnings: COMPLICATIONS: Complications from this condition are possible. Future problems may include pain, deformity and poor fracture healing. It is important to follow up with a physician for further evaluation and treatment. CONTROLLED SUBSTANCE WARNINGS. Your Current Medications: CONTINUE TAKING THE FOLLOWING MEDICATIONS: ALPRAZolam Oral : 1 mg 2x a day, prn, anxity. Bactrim DS Oral : 1 tablet 2x a day, Started: . Gabapentin Oral : Tablet 600 mg, 2x a day, prn. HCTZ* : 25 mg daily. Keflex 500mg q 6 hrs started last *. Lisinopril Oral : 40 mg daily. Naproxen Oral : 2 tabs every 8 -12 hours. Percocet 10mg (ran out this am) *. Propranolol* : has been out for awhile. PROzac Oral : Capsule 20 mg, 2 capsules daily. Prescription Medications: Oxycodone/APAP 10 mg/325 mg: take 1 tablet orally every 8 hours as needed for pain. Dispense ten (10). No refill. Follow-up: Follow up with a hand surgeon Tuesday. Call for an appointment. Reason for referral: fracture thumb with displacement. Understanding of the discharge instructions verbalized by patient. [facility] , [address] [place], [id number] Follow up Tuesday. Reason for referral: thumb fracture, needs ortho appointment. Limit use of your right hand for four weeks as needed and until released. (Electronically signed by Paty Michel PA-C 03/20/2017 0:06)
--- NOTE | 2017-03-20 00:06 | ED MED RECONCILIATION SUMMARY ---
Patient: JULIANNA HUFFMAN Medication Reconciliation Report [facility] VisitID: [id number] [place] [address] 41y, M Registration Date/Time: 03/19/2017 Weight: 113.3 kg Height/Length: 74 in. BMI: 32.1 ALLERGIES: Cephalexin, Toradol, Tylenol The patient's Home Medications are listed below: CONTINUE TAKING THE FOLLOWING MEDICATIONS: ALPRAZolam Oral 1 mg, 2x a day, anxity Bactrim DS Oral 1 tablet, 2x a day Gabapentin Oral (600 mg), 2x a day HCTZ 25 mg, daily Keflex 500mg q 6 hrs started last Lisinopril Oral 40 mg, daily Naproxen Oral 2 tabs every 8 -12 hours Percocet 10mg (ran out this am) Propranolol, has been out for awhile PROzac Oral (20 mg) 2 capsules, daily The source(s) of the original Home Medication information: Not obtained. The following Medications were given to the patient in the Emergency Department: Oxycodone-APAP [PO] PO 2 tab, administered: 03/19/2017 10:03:00 PM The following Medications were prescribed to the patient: Oxycodone/APAP 10 mg/325 mg: take 1 tablet orally every 8 hours as needed for pain. Dispense ten (10). No refill. -- Paty Michel PA-C
--- NOTE | 2017-03-20 00:06 | ED MED RECONCILIATION SUMMARY ---
Patient: JULIANNA HUFFMAN Medication Reconciliation Report [facility] VisitID: [id number] [place] [address] 41y, M Registration Date/Time: 03/19/2017 Weight: 113.3 kg Height/Length: 74 in. BMI: 32.1 ALLERGIES: Cephalexin, Toradol, Tylenol The patient's Home Medications are listed below: CONTINUE TAKING THE FOLLOWING MEDICATIONS: ALPRAZolam Oral 1 mg, 2x a day, anxity Bactrim DS Oral 1 tablet, 2x a day Gabapentin Oral (600 mg), 2x a day HCTZ 25 mg, daily Keflex 500mg q 6 hrs started last Lisinopril Oral 40 mg, daily Naproxen Oral 2 tabs every 8 -12 hours Percocet 10mg (ran out this am) Propranolol, has been out for awhile PROzac Oral (20 mg) 2 capsules, daily The source(s) of the original Home Medication information: Not obtained. The following Medications were given to the patient in the Emergency Department: Oxycodone-APAP [PO] PO 2 tab, administered: 03/19/2017 10:03:00 PM The following Medications were prescribed to the patient: Oxycodone/APAP 10 mg/325 mg: take 1 tablet orally every 8 hours as needed for pain. Dispense ten (10). No refill. -- Paty Michel PA-C
--- NOTE | 2017-03-20 00:06 | ED DISCHARGE INSTRUCTIONS ---
Patient: JULIANNA HUFFMAN General Instructions [facility] VisitID: [id number] [address] [address] 41y, M Registration Date/Time: 03/19/2017 Closed displaced proximal phalanx fracture of the right thumb. we re-splinted with thumb spica. he needs to see ortho for follow up Tuesday at [facility]. INSTRUCTIONS Elevate affected areas above chest level. Wear fiberglass splint (until you see ortho for follow up). Limit use of your right hand for four weeks as needed and until released. No dietary restrictions. Warnings: COMPLICATIONS: Complications from this condition are possible. Future problems may include pain, deformity and poor fracture healing. It is important to follow up with a physician for further evaluation and treatment. CONTROLLED SUBSTANCE WARNINGS. Your Current Medications: CONTINUE TAKING THE FOLLOWING MEDICATIONS: ALPRAZolam Oral : 1 mg 2x a day, prn, anxity. Bactrim DS Oral : 1 tablet 2x a day, Started: . Gabapentin Oral : Tablet 600 mg, 2x a day, prn. HCTZ* : 25 mg daily. Keflex 500mg q 6 hrs started last *. Lisinopril Oral : 40 mg daily. Naproxen Oral : 2 tabs every 8 -12 hours. Percocet 10mg (ran out this am) *. Propranolol* : has been out for awhile. PROzac Oral : Capsule 20 mg, 2 capsules daily. Prescription Medications: Oxycodone/APAP 10 mg/325 mg: take 1 tablet orally every 8 hours as needed for pain. Dispense ten (10). No refill. Follow-up: Follow up with a hand surgeon Tuesday. Call for an appointment. Reason for referral: fracture thumb with displacement. Understanding of the discharge instructions verbalized by patient. [facility], , [address], [address] Follow up Tuesday. Reason for referral: thumb fracture, needs ortho appointment. Limit use of your right hand for four weeks as needed and until released. (Electronically signed by Paty Michel PA-C 03/20/2017 0:06)
--- NOTE | 2017-03-20 00:06 | ED MAR SUMMARY ---
..... Medication Administration Record [facility] [address] [place] [address] Patient: JULIANNA HUFFMAN Visit ID: [id number] 41y, M Weight: 113.3 kg Height/Length: 74 in BMI: 32.1 ALLERGIES: Cephalexin, Toradol, Tylenol Given 22:03 03/19/2017 Jerome Gordon R.N. Medication Administered: OXYCODONE-APAP [PO] (OXYCODONE-ACETAMINOPHEN), Dose: 2 tab 10/650 mg Tablets PO. Medication Ordered: Oxycodone-APAP PO 10/650 mg (HIGH ALERT MEDICATION, NOW).
== END 2017-03-19 22:50 | disposition home or self-care (01) ==
LOC: ED SRH 20:34
DX: S62.511S Displaced fracture of proximal phalanx of right thumb, sequela (principal); Z88.6 Allergy status to analgesic agent; W10.8XXS Fall (on) (from) other stairs and steps, sequela; Z79.899 Other long term (current) drug therapy; Z79.2 Long term (current) use of antibiotics; Z79.891 Long term (current) use of opiate analgesic; Z79.1 Long term (current) use of non-steroidal anti-inflammatories (NSAID)